=== PATIENT | female | born 1995 | race African-American/Black ===

== ENCOUNTER 2017-09-25 20:18 | Emergency (ER) | payer OTHER ==
[~2017-09-25] VITALS: Ht 167.6 cm; Wt 76.2 kg
[2017-09-25] MEDS ORDERED: VYVANSE40 MG ORAL (20:31)
[2017-09-25 20:35] VITALS: BP 115/51
[2017-09-25] MEDS ORDERED: DIFLUCAN200 MG ORAL (20:42)
[2017-09-25] MEDS ORDERED: CLOTRIMAZOLE15 GM TOPIC (20:42)
[2017-09-25 20:50] VITALS: BP 115/51
--- NOTE | 2017-09-26 23:10 | Emergency Room Report ---
History of Present Illness General Chief Complaint: Skin Rash/Abscess Source: Patient Present Illness HPI 22-year-old female presents ED for evaluation of rash. States she has "ringworm ". Has had it for the last 5 weeks. Has tried cnre-fkt-kehiwnq medications without significant relief. States she's had these symptoms in the past and states that normally resolves with [id number] topical antifungals. Notes itchiness. Denies fevers chills. Denies pain. Denies sick contacts or recent travel. No other aggravating relieving factors. Denies any other associated symptoms Allergies: Coded Allergies: No Known Allergies (Unverified , 09/25/17) Patient History Past Medical History: psych hx Past Surgical History: none Pertinent Family History: none Social History: Denies: smoking, alcohol use, drug use Last Menstrual Period: 09/16/17 Now: No : 0 Para: 0 Immunizations: UTD Reviewed Nursing Documentation: PMH: Agreed; PSxH: Agreed Nursing Documentation-PMH Past Medical History: No History, Except For History Of Psychiatric Problem: Yes - ADD Review of Systems All Other Systems: negative except mentioned in HPI Physical Exam Vital Signs Date Time Temp Pulse Resp B/P (MAP) Pulse Ox O2 Delivery O2 Flow Rate FiO2 09/25/17 20:26 98.0 80 14 115/51 97 Room Air 98.1 Sp02 EP Interpretation: reviewed, normal General Appearance: no apparent distress, alert, GCS 15, non-toxic Head: normocephalic, atraumatic Eyes: bilateral eye normal inspection, bilateral eye PERRL ENT: hearing grossly normal, normal pharynx, no angioedema, normal voice Neck: full range of motion, supple/symm/no masses Respiratory: chest non-tender, lungs clear, normal breath sounds, speaking full sentences Cardiovascular #1: regular rate, rhythm, no edema Cardiovascular #2: 2+ carotid (R), 2+ carotid (L), 2+ radial (R), 2+ radial (L) , 2+ dorsalis pedis (R), 2+ dorsalis pedis (L) Gastrointestinal: normal bowel sounds, non tender, soft, non-distended, no guarding, no rebound Rectal: deferred Genitourinary: normal inspection, no CVA tenderness Musculoskeletal: back normal, gait/station normal, normal range of motion, non- tender Neurologic: alert, oriented x3, responsive, motor strength/tone normal, sensory intact, speech normal Psychiatric: judgement/insight normal, memory normal, mood/affect normal, no suicidal/homicidal ideation Reflexes: 3+ bicep (R), 3+ bicep (L), 3+ tricep (R), 3+ tricep (L), 3+ knee (R) , 3+ knee (L) Skin: rash - multiple circular lesions with raised edges, central clearing Lymphatic: no adenopathy Medical Decision Making Diagnostic Impression: Primary Impression: Ringworm ER Course Hospital Course 22 yo F presents with diffuse rash Differential diagnoses include: Cellulitis, dermatitis, insect bite, abscess Clinical course Patient placed on stretcher. After initial history, physical exam reveals a young female in no acute distress. On exam there are multiple macular circular lesions to the body. Raise edges with central clearing Consistent with ringworm. Given that ketk-sqs-irdwkrb medications are not helping we will prescribe one week course of fluconazole along with Lotrimin topical Diagnosis - ringworm stable and discharged to home with prescription for Fluconazole, Lotrimin. Instructed to followup with PMD. Instructed return to ED if symptoms recur or worsen Last Vital Signs Date Time Temp Pulse Resp B/P (MAP) Pulse Ox O2 Delivery O2 Flow Rate FiO2 09/25/17 20:50 98.1 80 14 115/51 97 Room Air 98.1 Status: improved Disposition: HOME, SELF-CARE Condition: Stable Scripts Fluconazole* (DIFLUCAN*) 200 Mg Tablet 200 MG ORAL DAILY for 5 Days, TAB 0 Refills Prov: Mendoza Pettit MD 09/25/17 Clotrimazole* (LOTRIMIN*) 15 Gm Cream..g. 1 APPLIC TOPIC TWICE A DAY, #15 GM Prov: Mendoza Pettit MD 09/25/17 Referrals: NON PHYSICIAN (PCP) Patient Instructions: Body Ringworm Mendoza Pettit MD September 26, 2017 23:10
== END 2017-09-25 20:50 | disposition home or self-care (01) ==
LOC: EMR 20:35
DX: B35.9 Dermatophytosis, unspecified (principal)
CPT/HCPCS: 99284